=== PATIENT | male | born 1930 | race Caucasian/White ===

== ENCOUNTER 2016-07-18 11:18 | Inpatient (IN) | payer MEDICARE, MEDICAID ==
[~2016-07-18] VITALS: Ht 182.9 cm; Wt 77.1 kg
[~2016-07-18 11:18] MED LIST: ACET500C4 PO; ASCO250T6 PO; ASPI81TA31 PO; ATOR10TA PO; CALC500T13 PO; CARB-93 PO; CHOL400C8 PO; CLON0.1T14 PO; DILT120C11 PO; DIVA125T2 PO; DOCU-25 PO; FAMO40TA71 PO; FERR325T28 PO; POTA10TA10 PO; PRIM50TA27 PO; SERT50TA PO; TAMS-3 PO; VITA1CAP PO; Zolpidem Tartrate PO
[2016-07-18] MEDS ORDERED: MULT1TAB11 PO (11:53)
[2016-07-18] MEDS ORDERED: FINA5TAB3 PO (11:53)
[2016-07-18] MEDS ORDERED: SENN8.6T6 PO (11:53)
[2016-07-18] MEDS ORDERED: TRAM50TA2 PO (11:53)
[2016-07-18] MEDS ORDERED: DIVA250T4 PO (11:53)
[2016-07-18] MEDS ORDERED: HYDR-4076 PO (11:53)
[2016-07-18] MEDS ORDERED: MELA1TAB9 PO (11:53)
[2016-07-18] MEDS ORDERED: BISA10SU12 RC (11:53)
[2016-07-18 11:58] LABS: *BILIRUBIN,URIN NEGATIVE (NEGATIVE); *BLOOD, URINE Trace-intact (NEGATIVE); *CLARITY,URINE CLOUDY (CLEAR); *COLOR,URINE YELLOW (YELLOW); *KETONES,URINE NEGATIVE (NEGATIVE); *UROBILINOGEN,URINE 0.2 E.U./dl (NORMAL); LEUKOCYTE ESTERASE ,URINE 1+ (NEGATIVE); NITRITE, URINE NEGATIVE (NEGATIVE); PH,URINE 8.5 (5.0-8.0); UGLUCOSE NEGATIVE (NEGATIVE)
[2016-07-18] MEDS ORDERED: IV NORMAL SALINE 250 ML IV ONE (12:00)
[2016-07-18 12:04] LABS: BASOPHILS # (AUTO) 0.2 K/uL (0.0-8.0); EOSINOPHILS # (AUTO) 0.1 K/uL (0.0-0.7); EOSINOPHILS % (AUTO) 0.8 % (0.0-7.0); HEMATOCRIT 40.2 % (36.7-47.1); HEMOGLOBIN 13.7 g/dL (12.5-16.3); LYMPHOCYTES # (AUTO) 0.6 K/uL (20.0-40.0); LYMPHOCYTES % (AUTO) 3.3 % (20.5-51.5); MEAN CORPUSCULAR HEMOGLOBIN 31.2 uug (23.8-33.4); MEAN CORPUSCULAR HGB CONC 34 g/dL (32.5-36.3); MEAN CORPUSCULAR VOLUME 91.8 fL (73.0-96.2); MONOCYTES # (AUTO) 0.8 K/uL (2.0-10.0); MONOCYTES % (AUTO) 4.9 % (0.0-11.0); NEUTROPHILS # (AUTO) 15.6 K/uL (1.8-8.9); PLATELET COUNT (AUTO) 306 K/uL (152-348); RED BLOOD CELL COUNT(AUTO) 4.38 MIL/uL (4.06-5.63); RED CELL DISTRIBUTION WIDTH 13.9 % (12.1-16.2); WHITE BLOOD COUNT (AUTO) 17.3 K/uL (3.6-10.2)
[2016-07-18 12:07] LABS: CALCIUM 9.2 mg/dL (8.5-10.1); POTASSIUM 4.1 mmol/L (3.5-5.1)
[2016-07-18 12:09] LABS: CREATININE 1.5 mg/dL (0.6-1.3)
[2016-07-18 12:13] LABS: ALBUMIN 3.2 g/dL (3.4-5.0); BILIRUBIN,TOTAL 0.5 mg/dL (0.2-1.0); TOTAL PROTEIN, SERUM 7.3 g/dL (6.4-8.2)
[2016-07-18 12:13] LABS: *PROTEIN,URINE 3+ (NEGATIVE)
[2016-07-18 12:14] LABS: BACTERIA,URINE MANY /HPF (NONE SEEN); RBC,URINE 0-3 /HPF (0-3); SQUAMOUS EPITHELIAL CELL,UR FEW /HPF (NONE SEEN); WBC,URINE 20-50 /HPF (0-3)
[2016-07-18] MEDS ORDERED: CEFTRIAXONE 1 G in IV DEXTROSE 5% 50 ML IV ONE (12:30)
[2016-07-18 12:36] LABS: BAND % (MANUAL) 21 % (0-10); LYMPHOCYTES % (MANUAL) 2 % (20-40); MONOCYTES % (MANUAL) 3 % (2-10); NEUTROPHILS % (MANUAL) 74 % (42-75); PLATELET ESTIMATE ADEQUATE
[2016-07-18] MEDS ORDERED: IV NORMAL SALINE 500 ML BAG IV ONE (12:45)
[2016-07-18] MEDS ORDERED: CEFTRIAXONE 1 G VIAL ONE (12:55)
[2016-07-18 13:14] LABS: LACTIC ACID 2.3 mmol/L (0.4-2.0)
--- NOTE | 2016-07-18 13:55 | NUR ---
perineal hygiene provided. scrotom swollen onel lucia md notified.
--- NOTE | 2016-07-18 14:10 | NUR ---
us tech at bedside
--- NOTE | 2016-07-18 14:41 | NUR ---
ilia capps talking to dr. anthony regarding us result
--- NOTE | 2016-07-18 14:43 | NUR ---
ilia capps updating dr. bravo regarding the us results.
[2016-07-18 16:00] VITALS: BP 119/73
[2016-07-18] MEDS ORDERED: CEFTRIAXONE 1 G VIAL IM SCH (16:15)
[2016-07-18] MEDS ORDERED: ONDANSETRON 4 MG/2 ML VIAL IV PRN (16:15)
[2016-07-18] MEDS ORDERED: IV NORMAL SALINE 100 ML BAG IV PRN (16:30)
--- NOTE | 2016-07-18 17:38 | NUR ---
PATIENT BROUGHT FROM THE ER 1550, REPORT RECEIVED BY JUWAN LENZ. NO S/S OF DISTRESS OR PAIN NOTED. PATIENT IS UNABLE TO COMMUNICATE AND ASSESS. CALLED DR. CASTANEDA FOR ORDERS, ORDERS WERE PLACED. URONOLOGY EVALUATION WAS DONE, IRINA CHARGE NURSE PUT WRITTEN ORDERS IN THE COMPUTER. TALKED TO DAUGHTER, WE'LL CONTINUE UPDATE HER FOR ANY CHANGES. PATIENT NOW, IS SLEEPING, NO ACUTE DISTRESS NOTED. SWALLOW EVAL WILL BE DONE TOMORROW. WILL CONTINUE MONITORING.
[2016-07-18] MEDS ORDERED: BISACODYL 10 MG SUPP.RECT RC PRN (17:45)
[2016-07-18] MEDS ORDERED: ACETAMINOPHEN ES 500 MG TABLET PO PRN (17:45)
[2016-07-18] MEDS ORDERED: CALCIUM CARBONATE 500 MG TAB.CHEW PO PRN (17:45)
[2016-07-18] MEDS: IV NS 1000 ML 1,000 ML IV PRN (18:05)
--- NOTE | 2016-07-18 19:30 | NUR ---
NSG: pt received awake but confused. no acute distress noted. tele, SR with frequent pvc's. lungs sound clear to auscultate. incontinent of urine, has foul smelling urine. HOB elevated 45 degrees. cont to monitor.
[2016-07-18 20:06] VITALS: BP 140/100
[2016-07-18] MEDS ORDERED: HOME MED MISCELLANEOUS PO SCH (21:00)
[2016-07-18] MEDS: ENOXAPARIN SODIUM 30 MG/0.3 ML DISP.SYRIN SUBCUT SCH (21:41)
[2016-07-18] MEDS: MELATONIN 3 MG TABLET PO SCH (21:45)
[2016-07-18] MEDS: ATORVASTATIN 10 MG TABLET PO SCH (22:04)
[2016-07-18] MEDS: PRIMIDONE 50 MG TABLET PO SCH (22:04)
[2016-07-18] MEDS: SENNOSIDES 1 TABLET PO SCH (22:04)
[2016-07-18] MEDS: hydrALAZINE HCL 25 MG TABLET PO SCH (22:04)
[2016-07-18] MEDS: TAMSULOSIN HCL 0.4 MG CAP.SR.24H PO SCH (22:04)
--- NOTE | 2016-07-18 22:05 | NUR ---
nsg: melatonin not given, med not available.
--- NOTE | 2016-07-18 22:16 | NUR ---
NSG: LATEST LACTID ACID IS 2.3. PAGED DR. HUITRON, AWAITING CALLBACK.
--- NOTE | 2016-07-18 22:20 | NUR ---
NSG: Dr. Hatch called back. notified regarding latest lactic acid result of 2.3. received order for repeat lactic acid in am.
[2016-07-18 23:55] VITALS: BP 138/97
[2016-07-19] MEDS: IV NS 1000 ML 1,000 ML IV PRN ×2 (03:46→19:22)
[2016-07-19 04:00] VITALS: BP 132/81
--- NOTE | 2016-07-19 05:50 | NUR ---
nsg: all needs attended. no acute distress noted. tele, SR with pvc's. cont to monitor.
[2016-07-19 06:26] LABS: CALCIUM 8.5 mg/dL (8.5-10.1); CREATININE 0.9 mg/dL (0.6-1.3); POTASSIUM 3.5 mmol/L (3.5-5.1)
[2016-07-19 07:20] LABS: BASOPHILS % (AUTO) 0.2 % (0.0-2.0); EOSINOPHILS # (AUTO) 0.1 K/uL (0.0-0.7); EOSINOPHILS % (AUTO) 0.5 % (0.0-7.0); HEMATOCRIT 36.7 % (36.7-47.1); HEMOGLOBIN 12.4 g/dL (12.5-16.3); LYMPHOCYTES # (AUTO) 1.2 K/uL (20.0-40.0); LYMPHOCYTES % (AUTO) 9.8 % (20.5-51.5); MEAN CORPUSCULAR HEMOGLOBIN 31.3 uug (23.8-33.4); MEAN CORPUSCULAR HGB CONC 34 g/dL (32.5-36.3); MEAN CORPUSCULAR VOLUME 92.5 fL (73.0-96.2); MONOCYTES % (AUTO) 7.5 % (0.0-11.0); NEUTROPHILS # (AUTO) 10.4 K/uL (1.8-8.9); PLATELET COUNT (AUTO) 261 K/uL (152-348); RED BLOOD CELL COUNT(AUTO) 3.96 MIL/uL (4.06-5.63); RED CELL DISTRIBUTION WIDTH 14.3 % (12.1-16.2)
[2016-07-19 07:23] LABS: WHITE BLOOD COUNT (AUTO) 12.7 K/uL (3.6-10.2)
[2016-07-19 08:42] LABS: BAND % (MANUAL) 13 % (0-10); LYMPHOCYTES % (MANUAL) 10 % (20-40); MONOCYTES % (MANUAL) 8 % (2-10); NEUTROPHILS % (MANUAL) 69 % (42-75)
[2016-07-19 08:44] LABS: PLATELET ESTIMATE ADEQUATE
--- NOTE | 2016-07-19 09:00 | NUR ---
PATIENT REFUSING HIS MEDS BECOMING VERY ANXIOUS AND SCREAMING "NO, NO..", GRAB MY HAND AND HE STUDENT HAND VERY HARD, AND THREW SOME PUNCHES. WE ARE UNABLE TO ASSESS SCROTUM DUE TO HIS BEHAVIOR. OTHERWISE, PATIENT IS NOT IN ANY ACUTE DISTRESS, AND HE STAYS IN BED SLEEPING WHEN HE IS NOT BOTHER. WILL CONTINUE MONITORING.
[2016-07-19] MEDS: hydrALAZINE HCL 25 MG TABLET PO SCH ×2 (09:15→21:00)
[2016-07-19] MEDS: ASPIRIN 81 MG TAB.CHEW PO SCH (09:15)
[2016-07-19] MEDS: VITAMIN B COMPLEX 1 TABLET PO SCH (09:16)
[2016-07-19] MEDS: FAMOTIDINE 20 MG TABLET PO SCH (09:16)
[2016-07-19] MEDS: PRIMIDONE 50 MG TABLET PO SCH ×2 (09:16→21:00)
[2016-07-19] MEDS: DILTIAZEM HCL CD 120 MG CAP.SR.24H PO SCH (09:16)
[2016-07-19] MEDS: DIVALPROEX 250 MG TABLET.DR PO SCH ×3 (09:16→16:30)
[2016-07-19] MEDS: FINASTERIDE 5 MG TABLET PO SCH (09:16)
[2016-07-19] MEDS: DOCUSATE SODIUM 100 MG CAPSULE PO SCH (09:16)
[2016-07-19] MEDS: MULTIVIT, IRON, MIN NO. 8, FA TABLET PO SCH (09:16)
[2016-07-19] MEDS: CHOLECALCIFEROL 400 UNITS TABLET PO SCH (09:16)
[2016-07-19] MEDS: CARBIDOPA/LEVODOPA 25-100MG TABLET PO SCH ×3 (09:16→16:30)
[2016-07-19] MEDS: SERTRALINE HCL 50 MG TABLET PO SCH (09:17)
[2016-07-19 12:10] VITALS: BP 136/84
[2016-07-19] MEDS: CEFTRIAXONE 1 G in IV DEXTROSE 5% 50 ML IV SCH (13:56)
--- NOTE | 2016-07-19 16:19 | NUR ---
PATIENT CONTINUED NO TAKING NOTHING BY MOUTH, KEEP SAYING "NO, NO.."... BP WNL, NO S/S OF DISTRESS. HE ONLY BECOMES ANXIOUS FOR MEDICATION ADMINISTRATION AND INTERVENTIONS. WILL CONTINUE MONITORING.
[2016-07-19 16:28] VITALS: BP 129/74
--- NOTE | 2016-07-19 18:57 | NUR ---
PATIENT BEEN IN BED SLEEPING DURING THE AFTERNOON. NO S/S OF DISTRESS NOTED. SAFETY AND COMFORT PROVIDED BY STAFF. REPORT WILL BE GIVEN TO PM NURSE.
[2016-07-19 19:00] VITALS: BP 144/96
[2016-07-19] MEDS: MELATONIN 3 MG TABLET PO SCH (21:00)
[2016-07-19] MEDS: SENNOSIDES 1 TABLET PO SCH (21:00)
[2016-07-19] MEDS: ATORVASTATIN 10 MG TABLET PO SCH (21:00)
[2016-07-19] MEDS: TAMSULOSIN HCL 0.4 MG CAP.SR.24H PO SCH (21:00)
[2016-07-19] MEDS: ENOXAPARIN SODIUM 30 MG/0.3 ML DISP.SYRIN SUBCUT SCH (22:07)
[2016-07-20 04:00] VITALS: BP 138/90
[2016-07-20] MEDS: IV NS 1000 ML 1,000 ML IV PRN (05:19)
[2016-07-20 06:09] LABS: BASOPHILS # (AUTO) 0.2 K/uL (0.0-8.0); EOSINOPHILS # (AUTO) 0.1 K/uL (0.0-0.7); EOSINOPHILS % (AUTO) 1.7 % (0.0-7.0); HEMATOCRIT 36.8 % (36.7-47.1); HEMOGLOBIN 12.2 g/dL (12.5-16.3); LYMPHOCYTES # (AUTO) 1.4 K/uL (20.0-40.0); LYMPHOCYTES % (AUTO) 16.3 % (20.5-51.5); MEAN CORPUSCULAR HGB CONC 33 g/dL (32.5-36.3); MEAN CORPUSCULAR VOLUME 93.3 fL (73.0-96.2); MONOCYTES # (AUTO) 0.7 K/uL (2.0-10.0); MONOCYTES % (AUTO) 7.7 % (0.0-11.0); NEUTROPHILS # (AUTO) 6.4 K/uL (1.8-8.9); NEUTROPHILS % (AUTO) 72.3 % (38.5-71.5); PLATELET COUNT (AUTO) 240 K/uL (152-348); RED BLOOD CELL COUNT(AUTO) 3.95 MIL/uL (4.06-5.63); RED CELL DISTRIBUTION WIDTH 13.7 % (12.1-16.2); WHITE BLOOD COUNT (AUTO) 8.8 K/uL (3.6-10.2)
[2016-07-20 06:26] LABS: ALBUMIN 2.7 g/dL (3.4-5.0); BILIRUBIN,TOTAL 0.4 mg/dL (0.2-1.0); CALCIUM 8.4 mg/dL (8.5-10.1); CREATININE 0.6 mg/dL (0.6-1.3); PHOSPHOROUS 2.3 mg/dL (2.5-4.9); TOTAL PROTEIN, SERUM 6.5 g/dL (6.4-8.2)
--- NOTE | 2016-07-20 07:07 | NUR ---
PT ALERT, CONFUSED AND NON COMPLIANT, AGITATED AND YELLING "NO,NO,NO" REFUSED TO TAKE MEDS AND NOT EVEN E APPLE SAUCE, REFUSED TO GET CLEANED PT INCONTINENT HAD BM AND LARGE URINE, WAS ABLE TO GET CLEANED DESPITE PT IS YELLING.MAX ASSIST ,CONTINUE WITH IV FLUIDS, SLEEP INTERMITENTLY,IV STILL IN PLACE, WAS ABLE TO DRAW LABS THIS AM WITH ASSISTANCE.ALL NEEDS ATTENDED.
[2016-07-20 08:22] LABS: BAND % (MANUAL) 5 % (0-10); EOSINOPHILS % (MANUAL) 4 % (0-8); LYMPHOCYTES % (MANUAL) 16 % (20-40); MONOCYTES % (MANUAL) 8 % (2-10); NEUTROPHILS % (MANUAL) 67 % (42-75)
[2016-07-20 08:24] LABS: PLATELET ESTIMATE ADEQUATE
[2016-07-20] MEDS: hydrALAZINE HCL 25 MG TABLET PO SCH ×2 (09:00→20:57)
[2016-07-20] MEDS: DIVALPROEX 250 MG TABLET.DR PO SCH ×3 (09:00→17:31)
[2016-07-20] MEDS: CARBIDOPA/LEVODOPA 25-100MG TABLET PO SCH ×3 (09:00→17:31)
[2016-07-20] MEDS: DOCUSATE SODIUM 100 MG CAPSULE PO SCH (09:00)
[2016-07-20] MEDS: SERTRALINE HCL 50 MG TABLET PO SCH (09:00)
[2016-07-20] MEDS: FINASTERIDE 5 MG TABLET PO SCH (09:00)
[2016-07-20] MEDS: VITAMIN B COMPLEX 1 TABLET PO SCH (09:00)
[2016-07-20] MEDS: DILTIAZEM HCL CD 120 MG CAP.SR.24H PO SCH (09:00)
[2016-07-20] MEDS: ASPIRIN 81 MG TAB.CHEW PO SCH (09:00)
[2016-07-20] MEDS: PRIMIDONE 50 MG TABLET PO SCH ×2 (09:00→20:57)
[2016-07-20] MEDS: MULTIVIT, IRON, MIN NO. 8, FA TABLET PO SCH (09:00)
[2016-07-20] MEDS: CHOLECALCIFEROL 400 UNITS TABLET PO SCH (09:00)
[2016-07-20] MEDS: FAMOTIDINE 20 MG TABLET PO SCH (09:00)
--- NOTE | 2016-07-20 09:00 | NUR ---
PT REFUSED BREAKFAST, WHEN OFFERED MEDICATIONS PT IS SPITTING OUT THE MED AND TRYING TO HIT THE NURSE. SCREAMING "NO, I DON'T WANT IT. NO!"
[2016-07-20 09:07] LABS: *TESTOSTERONE, SERUM 58 ng/dL (348-1197)
[2016-07-20] MEDS: POTASSIUM PHOSPHATE MM 5 MMOL in IV DEXTROSE 5% 100 ML IV SCH ×4 (11:24→17:28)
[2016-07-20 12:00] VITALS: BP 147/100
[2016-07-20] MEDS: CEFTRIAXONE 1 G in IV DEXTROSE 5% 50 ML IV SCH (13:21)
[2016-07-20] MEDS ORDERED: POTASSIUM CHLORIDE 10 MEQ CAPSULE.SA PO ONE (14:00)
--- NOTE | 2016-07-20 14:00 | NUR ---
PT REFUSED MEDICATIONS. STARTED SCREAMING "NO, NO".
[2016-07-20] MEDS ORDERED: POTASSIUM CHLORIDE 20 MEQ TAB.PRT.SR PO ONE ×2 (14:15→16:30)
[2016-07-20 15:51] VITALS: BP 151/106
--- NOTE | 2016-07-20 15:59 | NUR ---
PAGED DR. MCLEOD IN REGARDS OF PT'S B/P IS [id number], PULSE 69.
--- NOTE | 2016-07-20 16:07 | NUR ---
RETMANUELITO PT'S B/P 146/97, PULSE 97
--- NOTE | 2016-07-20 16:12 | NUR ---
ADVISED DR. MCLEOD THAT PT STATES "YES, PAIN.. IN BETWEEN", FACIAL GRIMACING AND MOANING. PER DR. MCLEOD "DILAUDID 0.5MG Q4H PRN". ORDER NOTED, WILL BE CARRIED OUT. NO PRN FOR BP MEDS. DR. MCLEOD IS AWARE THAT PT REFUSES ALL PO MEDS.
[2016-07-20] MEDS ORDERED: HYDROMORPHONE 1 MG/1 ML DISP.SYRIN IV PRN (16:15)
[2016-07-20 18:38] VITALS: BP 145/96
[2016-07-20 19:00] VITALS: BP 150/88
--- NOTE | 2016-07-20 19:06 | NUR ---
DR. DENNIS ASSESSED THE PT, PT DOES NOT REPORTS ANY PAIN. NO S/S OF RESPIRATORY DISTRESS NOTED, ALL SAFETY NEEDS ARE MET. PT IS AWAKE, PT GETS AGITATED AT TIMES. IV INTACT/PATENT.
--- NOTE | 2016-07-20 20:00 | NUR ---
PATIENT AWAKE,CONFUSED,AT TIMES,IN NO ACUTE DISTRESS NOTED,INCONTINENCE CARE,SCROTUM MARKED EDEMATOUS AND HARD TO TOUCH,PATIENT IS AFEBRILE,URINE CLEAR,YELLOWISH.
[2016-07-20] MEDS: POTASSIUM CHLORIDE 50 ML IV SCH ×4 (20:16→23:16)
[2016-07-20] MEDS: SENNOSIDES 1 TABLET PO SCH (20:57)
[2016-07-20] MEDS: ATORVASTATIN 10 MG TABLET PO SCH (20:57)
[2016-07-20] MEDS: TAMSULOSIN HCL 0.4 MG CAP.SR.24H PO SCH (20:57)
[2016-07-20] MEDS: MELATONIN 3 MG TABLET PO SCH (20:58)
--- NOTE | 2016-07-20 21:00 | NUR ---
PATIENT TOOK ALL HIS MEDICATIONS,HAS MODERATE AMOUNT OF SOFT STOOL.
[2016-07-20] MEDS: ENOXAPARIN SODIUM 40 MG/0.4 ML DISP.SYRIN SQ SCH (22:01)
--- NOTE | 2016-07-20 22:25 | NUR ---
PATIENT MOANING,SCREAMING IN PAIN,DILAUDID 0.5 MG IV GIVEN PER MD ORDER DOSE,DILAUDID 1 MG TOOK OFF FROM PYXIS, TO WASTE 0.5 MG,WITNESS BY LEYDA VEE RN ,BUT ACCIDENTLY DOCUMENT WASTE I MG,INSTEAD OF 0.5 MG,PHARMACY WAS NOTIFIED.
--- NOTE | 2016-07-20 23:00 | NUR ---
PATIENT SLEEPING APPEARS COMFORTABLE,NO S/S DISTRESS NOTED.
[2016-07-21] MEDS: POTASSIUM CHLORIDE 50 ML IV SCH ×2 (00:05→01:02)
[2016-07-21 04:29] VITALS: BP 138/91
--- NOTE | 2016-07-21 06:00 | NUR ---
NO ACUTE DISTRESS, VITAL SIGNS STABLE AND WNL,NEEDS ATTENDED.FALL AND ASPIRATION PRECAUTIONS.
[2016-07-21] MEDS: IV NS 1000 ML 1,000 ML IV PRN ×2 (06:55→20:13)
[2016-07-21 07:05] LABS: ALBUMIN 2.6 g/dL (3.4-5.0); BILIRUBIN,TOTAL 0.4 mg/dL (0.2-1.0); CALCIUM 8.4 mg/dL (8.5-10.1); CREATININE 0.6 mg/dL (0.6-1.3); MAGNESIUM 1.7 mg/dL (1.8-2.4); POTASSIUM 3.9 mmol/L (3.5-5.1); TOTAL PROTEIN, SERUM 6.4 g/dL (6.4-8.2)
[2016-07-21 07:39] LABS: BASOPHILS % (AUTO) 0.5 % (0.0-2.0); EOSINOPHILS # (AUTO) 0.3 K/uL (0.0-0.7); EOSINOPHILS % (AUTO) 3.6 % (0.0-7.0); HEMATOCRIT 35.8 % (36.7-47.1); HEMOGLOBIN 12.1 g/dL (12.5-16.3); LYMPHOCYTES # (AUTO) 1.4 K/uL (20.0-40.0); LYMPHOCYTES % (AUTO) 18.3 % (20.5-51.5); MEAN CORPUSCULAR HEMOGLOBIN 31.5 uug (23.8-33.4); MEAN CORPUSCULAR HGB CONC 34 g/dL (32.5-36.3); MEAN CORPUSCULAR VOLUME 93.1 fL (73.0-96.2); MONOCYTES # (AUTO) 0.7 K/uL (2.0-10.0); MONOCYTES % (AUTO) 8.7 % (0.0-11.0); NEUTROPHILS # (AUTO) 5.1 K/uL (1.8-8.9); NEUTROPHILS % (AUTO) 68.9 % (38.5-71.5); PLATELET COUNT (AUTO) 264 K/uL (152-348); RED BLOOD CELL COUNT(AUTO) 3.84 MIL/uL (4.06-5.63); RED CELL DISTRIBUTION WIDTH 13.5 % (12.1-16.2); WHITE BLOOD COUNT (AUTO) 7.5 K/uL (3.6-10.2)
--- NOTE | 2016-07-21 08:00 | NUR ---
awake confused FORGETFULO SOB OR PAIN CONTINUE IVF INFUSION WELL ON ASPIRATION /FALL PRECAUTION BED ALARM ON AND CALL [facility] IN REACH
--- NOTE | 2016-07-21 08:00 | NUR ---
AWAKE CONFUSED FORGETFUL NO SOB OR PAIN ON FALL /ASPIRATION PRECAUTION BED ALARM ON AND CALL [facility] WITHIN REACH REMIND TO CALL WHEN NEEDED
[2016-07-21] MEDS: MULTIVIT, IRON, MIN NO. 8, FA TABLET PO SCH (08:42)
[2016-07-21] MEDS: ASPIRIN 81 MG TAB.CHEW PO SCH (08:42)
[2016-07-21] MEDS: SERTRALINE HCL 50 MG TABLET PO SCH (08:42)
[2016-07-21] MEDS: DOCUSATE SODIUM 100 MG CAPSULE PO SCH (08:42)
[2016-07-21] MEDS: CARBIDOPA/LEVODOPA 25-100MG TABLET PO SCH ×3 (08:42→17:18)
[2016-07-21] MEDS: FINASTERIDE 5 MG TABLET PO SCH (08:42)
[2016-07-21] MEDS: CHOLECALCIFEROL 400 UNITS TABLET PO SCH (08:43)
[2016-07-21] MEDS: PRIMIDONE 50 MG TABLET PO SCH ×2 (08:43→21:05)
[2016-07-21] MEDS: FAMOTIDINE 20 MG TABLET PO SCH (08:43)
[2016-07-21] MEDS: DIVALPROEX 250 MG TABLET.DR PO SCH ×3 (08:43→17:18)
[2016-07-21] MEDS: hydrALAZINE HCL 25 MG TABLET PO SCH ×2 (08:45→21:05)
[2016-07-21] MEDS: DILTIAZEM HCL CD 120 MG CAP.SR.24H PO SCH (08:46)
[2016-07-21] MEDS: VITAMIN B COMPLEX 1 TABLET PO SCH (09:00)
[2016-07-21] MEDS: Z GUARD REMEDY PASTE 57 GM TUBE TOP PRN (09:12)
--- NOTE | 2016-07-21 10:00 | NUR ---
DR CASTANEDA SEE PATIENT AND LAB RESULT MG IVPB GIVEN ORDER RESTING
[2016-07-21] MEDS: MAGNESIUM SULFATE/D5W 100 ML IV SCH ×2 (10:46→11:43)
[2016-07-21 11:45] VITALS: BP 131/85
[2016-07-21] MEDS: CEFTRIAXONE 1 G in IV DEXTROSE 5% 50 ML IV SCH (12:58)
[2016-07-21 15:31] VITALS: BP 153/103
--- NOTE | 2016-07-21 17:00 | NUR ---
RESTING STABLE HEMODYNAMIC SAFETY MEASURE PROVIDED CALL [facility] WITHIN REACH AND BED ALARM ON
[2016-07-21 19:55] VITALS: BP 141/97
[2016-07-21] MEDS: SENNOSIDES 1 TABLET PO SCH (21:04)
[2016-07-21] MEDS: ATORVASTATIN 10 MG TABLET PO SCH (21:04)
[2016-07-21] MEDS: TAMSULOSIN HCL 0.4 MG CAP.SR.24H PO SCH (21:04)
[2016-07-21] MEDS: TRAMADOL HCL 50 MG TABLET PO PRN (21:04)
[2016-07-21] MEDS: MELATONIN 3 MG TABLET PO SCH (21:05)
[2016-07-21] MEDS: ENOXAPARIN SODIUM 40 MG/0.4 ML DISP.SYRIN SQ SCH (21:07)
[2016-07-22 05:21] VITALS: BP 134/91
--- NOTE | 2016-07-22 06:00 | NUR ---
end of shift report: patient remains confused, no acute event /shift, appears comfortable,v/s stable,all needs attended.
[2016-07-22 06:40] LABS: CALCIUM 8.3 mg/dL (8.5-10.1); CREATININE 0.7 mg/dL (0.6-1.3); MAGNESIUM 2.3 mg/dL (1.8-2.4); POTASSIUM 3.9 mmol/L (3.5-5.1)
[2016-07-22] MEDS: IV NS 1000 ML 1,000 ML IV PRN (06:43)
[2016-07-22] MEDS ORDERED: CEPH500C2 PO (08:30)
--- NOTE | 2016-07-22 08:30 | NUR ---
AWAKE CONFUSED RESTING WITH CALL [facility] IN REACH ON FALL /ASPIRATION PRECAUTION EAT SMALL AMT BREAKFAST
[2016-07-22] MEDS: DIVALPROEX 250 MG TABLET.DR PO SCH ×3 (08:37→16:48)
[2016-07-22] MEDS: MULTIVIT, IRON, MIN NO. 8, FA TABLET PO SCH (08:37)
[2016-07-22] MEDS: DOCUSATE SODIUM 100 MG CAPSULE PO SCH (08:37)
[2016-07-22] MEDS: DILTIAZEM HCL CD 120 MG CAP.SR.24H PO SCH (08:37)
[2016-07-22] MEDS: VITAMIN B COMPLEX 1 TABLET PO SCH (08:38)
[2016-07-22] MEDS: FINASTERIDE 5 MG TABLET PO SCH (08:38)
[2016-07-22] MEDS: PRIMIDONE 50 MG TABLET PO SCH (08:38)
[2016-07-22] MEDS: ASPIRIN 81 MG TAB.CHEW PO SCH (08:38)
[2016-07-22] MEDS: CHOLECALCIFEROL 400 UNITS TABLET PO SCH (08:38)
[2016-07-22] MEDS: CARBIDOPA/LEVODOPA 25-100MG TABLET PO SCH ×3 (08:38→16:48)
[2016-07-22] MEDS: hydrALAZINE HCL 25 MG TABLET PO SCH (08:38)
[2016-07-22] MEDS: FAMOTIDINE 20 MG TABLET PO SCH (08:38)
[2016-07-22] MEDS: SERTRALINE HCL 50 MG TABLET PO SCH (08:38)
[2016-07-22] MEDS: Z GUARD REMEDY PASTE 57 GM TUBE TOP PRN (08:39)
[2016-07-22] MEDS: TRAMADOL HCL 50 MG TABLET PO PRN ×2 (08:50→16:48)
--- NOTE | 2016-07-22 09:00 | NUR ---
DR MCLEOD SEE PATIENT AND LAB RESULT ORDER OK TO GO BACK TO [facility] WITH ORDER
[2016-07-22 11:14] VITALS: BP 163/93
--- NOTE | 2016-07-22 12:00 | NUR ---
STILL GEN WEAK OOB WITH PT TODAY
[2016-07-22] MEDS: CEFTRIAXONE 1 G in IV DEXTROSE 5% 50 ML IV SCH (12:30)
--- NOTE | 2016-07-22 12:57 | NUR ---
Discharge: The patient will be discharged today back to [facility] [ ; [address] [place] [address] room [address]A] via [facility]. He is aware and in agreement with his discharge as well as Debo [Daughter [phone]]. Spoke to jarad Patel from the [facility], who confirmed that they will re-admit the patient back today. Charge nurse, Stephan is aware of his discharge plan and will call the facility for the report [[phone]].
--- NOTE | 2016-07-22 14:00 | NUR ---
FAMILY DAUGHTER AND ROGELIO NURSE JASPAL WAS CALL AND REPORT GIVEN VIA TEL D/C INSTRUCTION REGARDING F/U WITH PMD CONTINUE HOME MED ORDER EDUCATION PK GAVE ,PATIENT BELONGING SOME OF THEM MISSING FAMILY WAS CALL AND ER/SAFETY BOX CHECK UNABLE TO FIND IT INCIDENT REPORT MADE CHARGE NURSE JIGAR INFORM
[2016-07-22 15:17] VITALS: BP 109/76
--- NOTE | 2016-07-22 17:00 | NUR ---
HEMODYNAMIC STATUS STABLE SAFETY MEASURE PROVIDED CALL [facility] IN REACH
--- NOTE | 2016-07-22 17:30 | NUR ---
D/C TO [facility] VIA AMBULANCE CONDITION STABLE NO SOB OR PAIN EAT DINNER WELL AT THIS TIME
== END 2016-07-22 17:30 | DRG 871 ==
LOC: ER 11:18 → TELE 14:09 → MED 07-19 15:14
PROVIDERS: ADMIT Internal Medicine; ATTEND Internal Medicine
DX: A41.9 Sepsis, unspecified organism (principal); N17.0 Acute kidney failure with tubular necrosis; G92 Toxic encephalopathy; E44.0 Moderate protein-calorie malnutrition; E87.2 Acidosis; N39.0 Urinary tract infection, site not specified; N13.30 Unspecified hydronephrosis; E78.5 Hyperlipidemia, unspecified; E86.9 Volume depletion, unspecified; G20 Parkinson's disease; G40.909 Epilepsy, unspecified, not intractable, without status epilepticus; N40.0 Benign prostatic hyperplasia without lower urinary tract symptoms; K56.41 Fecal impaction; K21.9 Gastro-esophageal reflux disease without esophagitis; F41.9 Anxiety disorder, unspecified; F32.9 Major depressive disorder, single episode, unspecified; G47.00 Insomnia, unspecified; N43.3 Hydrocele, unspecified; I12.9 Hypertensive chronic kidney disease with stage 1 through stage 4 chronic kidney disease, or unspecified chronic kidney disease; N18.9 Chronic kidney disease, unspecified; R80.9 Proteinuria, unspecified; K62.89 Other specified diseases of anus and rectum; R65.20 Severe sepsis without septic shock
CPT/HCPCS: 36415; 70030-TC; 70450; 71010; 76870; 83605; 83735; 84100; 84153; 84403; 85025; 85610; 87040; 87077; 87086; 92610; 93005; 97001; 97003; 97110; 97530; 97535; A4663; C1758; J0696; J1170; J1650; J3475; J3480; J3490; J7030; J7050; J7060